=== PATIENT | male | born 1960 | race Caucasian/White ===

== ENCOUNTER 2021-09-10 17:14 | Emergency (ER) | payer BC ==
[~2021-09-10] VITALS: Ht 152.4 cm; Wt 127.0 kg
[2021-09-10] MEDS ORDERED: LIDOCAINE 2% Multi-Dose 20 ML VIAL. IJ ONE (18:00)
[2021-09-10] MEDS ORDERED: DIPH,PERTUSS(ACELL),TET VAC/PF 0.5 ML SYRINGE. VAX IM ONE (18:00)
--- NOTE | 2021-09-10 19:22 | PHYS DOC ---
Past Medical History Past Surgical History: Cholecystectomy (ROCKY LAKHANI APRN) Smoking Status: Never Smoker Alcohol Use: Occasionally (ROCKY LAKHANI APRN) General Adult EDM: Chief Complaint: LACERATION/AVULSION HPI: HPI: Patient is a 60-year-old male presents emergency department reporting just prior to arrival he was cutting some insulation to install in his camper when he accidentally sliced his left thumb. Patient reports his tetanus immunization was greater than 5 years ago, denies other physical complaints or physical concerns. (ROCKY LAKHANI APRN) Review of Systems: Review of Systems: 14 body systems of review of systems have been reviewed. See HPI for pertinent positives and negative responses, otherwise all other systems are negative, nonpertinent or noncontributory. Constitutional: Negative except as outlined in HPI above. Skin: Negative except as outlined in HPI above. Eyes: Negative except as outlined in HPI above. HENT: Negative except as outlined in HPI above. Respiratory: Negative except as outlined in HPI above. Cardiovascular: Negative except as outlined in HPI above. GI: Negative except as outlined in HPI above. : Negative except as outlined in HPI above. Musculoskeletal: Negative except as outlined in HPI above. Integument: Negative except as outlined in HPI above. Neurologic: Negative except as outlined in HPI above. Endocrine: Negative except as outlined in HPI above. Lymphatic: Negative except as outlined in HPI above. Psychiatric: Negative except as outlined in HPI above. (ROCKY LAKHANI APRN) Heart Score: C/O Chest Pain: No Risk Factors: Risk Factors: DM, Current or recent (<one month) smoker, HTN, HLP, family history of CAD, obesity. Risk Scores: Score 0 - 3: 2.5% MACE over next 6 weeks - Discharge Home Score 4 - 6: 20.3% MACE over next 6 weeks - Admit for Clinical Observation Score 7 - 10: 72.7% MACE over next 6 weeks - Early Invasive Strategies (ROCKY LAKHANI APRN) Current Medications: Current Medications Medications (Trade) Dose Ordered Sig/Joel Start Time Stop Time Status Last Admin Dose Admin Diphtheria/ Tetanus/Acell Pertussis (ADACEL TDap SYRINGE) 0.5 ml ONCE ONCE 09/10/21 18:00 09/10/21 18:01 DC 09/10/21 18:08 0.5 ML Lidocaine HCl (Lidocaine 2% 20ml Vial) 20 ml 1X ONCE 09/10/21 18:00 09/10/21 18:01 DC 09/10/21 18:06 20 ML (ROCKY LAKHANI APRN) Allergies: Allergies: Allergies Coded Allergies Type Severity Reaction Last Updated Verified No Known Drug Allergies 09/10/21 No (ROCKY LAKHANI APRN) Physical Exam: PE: Constitutional: Well developed, well nourished, no acute distress, non-toxic appearance. 60-year-old male in no apparent distress. HENT: Normocephalic, atraumatic. Eyes: Conjunctiva normal, no discharge. Neck: Normal range of motion, no stridor. Cardiovascular: No cyanosis appreciated, distal cap refill less than 2 seconds. Lungs & Thorax: Patient is in no respiratory distress, no audible adventitious lung sounds appreciated. Abdomen: Nontender, no abnormalities noted. Skin: Warm, dry, no erythema, no rash. See extremity note for focused skin assessment Back: No tenderness, no deformities. Extremities: No tenderness, no cyanosis, no clubbing, ROM intact, no edema. Except for left thumb palmar aspect has 3 cm laceration near the DIP joint. Full active and passive range of motion of thumb joints, full thickness laceration with adipose tissue exposed, no tendon involvement appreciated. Distal cap refill less than 2 seconds, no loss of sensation distally. Neurologic: Alert and oriented X 3, normal motor function, normal sensory function, no focal deficits noted. Psychologic: Affect normal, judgement normal, mood normal. (ROCKY LAKHANI APRN) Current Patient Data: Vital Signs: Vital Signs Date Time Temp Pulse Resp B/P (MAP) Pulse Ox O2 Delivery O2 Flow Rate FiO2 09/10/21 17:45 98.0 88 16 146/89 (108) 97 Room Air 98.0 (ROCKY LAKHANI APRN) EKG: EKG: [] (ROCKY LAKHANI APRN) Radiology/Procedures: Radiology/Procedures: [] (ROCKY LAKHANI APRN) Course & Med Decision Making: Course & Med Decision Making Pertinent Labs and Imaging studies reviewed. (See chart for details) 60-year-old male, vital signs reviewed, presents emergency department concerning laceration to left thumb. Physical examination concerning for laceration, consistent with patient's explanation of events, will bring patient's tetanus immunization up-to-date with Adacel/Tdap. Please see laceration repair note. Patient gave verbal understanding of discharge home instructions, laceration suture repair care at home, follow-up to have sutures removed in 7 to 10 days.. Discussed with the patient all findings and diagnostic testing as well as the need to follow-up with their primary care provider for further evaluation and treatment or return to the ED if any new or worsening symptoms. Strict return precautions were also discussed at length, the patient voiced understanding and agreement with the discharge planning. The patient was nontoxic in appearance, in no apparent distress, and hemodynamically stable at the time of disposition. (ROCKY LAKHANI APRN) Course & Med Decision Making I have participated in the care of this patient and I have reviewed and agree with all pertinent clinical information above including history, exam, and recommendations. Bryant Bond DO (BRYANT BOND DO) Moncho Disclaimer: Moncho Disclaimer: This electronic medical record was generated, in whole or in part, using a voice recognition dictation system. (ROCKY LAKHANI APRN) Laceration Repair Lac Repair Indication: Laceration right thumb Time: 1914 Confirmed: Patient, procedure, side, and site correct. Consent: Patient, has given verbal consent. Description/repair Procedure: The patient was placed in the appropriate position and anesthesia around the laceration was achieved with 8 cc 2% lidocaine without epinephrine, digital block . The area was then cleansed with Betadine solution, vigorously irrigated with 500 cc normal saline. The laceration was closed with 7 interrupted sutures using 4-0 nylon. The wound area was then dressed with bacitracin and gauze by ED nursing staff prior to discharge. Complexity: Single layer. Post procedure exam: Circulation, motor, sensory examination intact, bleeding controlled. Total repaired wound length: 3 cm. Other Items: Laceration explored for foreign bodies, there are no foreign bodies. Laceration extended into the adipose tissue, no tendon involvement appreciated The patient tolerated the procedure well. Complications: No complications. Performed by: Rocky Mckeon, [employer] ENGINEER[employer]C Supervision: Dr. Bond was present for consult regarding the critical aspects of the procedure including closure and post procedure exam. Total time: 30 minutes. (ROCKY LAKHANI APRN) Departure Departure Impression: Primary Impression: Laceration of left thumb Qualified Codes: S61.012A - Laceration without foreign body of left thumb without damage to nail, initial encounter Disposition: 01 HOME / SELF CARE / HOMELESS Condition: GOOD Referrals: NO PCP (PCP) Patient Instructions: Laceration Care, Adult Additional Instructions: You were seen today in the emergency department for laceration to your left thumb, this was repaired with 7 sutures that will require removal in 7 to 10 days. When you return home to your state residence, please follow-up with your primary care physician to have sutures removed. Cleanse daily with soap and water and apply antibiotic ointment with bandage until sutures are removed. As we discussed, do not soak your hands and water for long periods of time such as doing dishes or swimming or soaking in hot tubs. However please cleanse 2-3 times daily with mild soap and water pat dry and apply [id number] antibiotic ointment and a Band-Aid. Return to the emergency room immediately for reevaluation for increased pain noncontrolled with Tylenol or ibuprofen, purulent malodorous drainage. During the first few days of the healing process it is difficult to ooze bright red to dark red-colored blood with a yellow tinge. Thank you for visiting our Emergency Department. It was a pleasure taking care of you today in the emergency department and we appreciate you trusting us with your care. If any additional problems come up don't hesitate to return to visit us. Please follow up with your primary care provider so they can plan additional care if needed and know about the problem that you had. If symptoms worsen come back to the Emergency Department. Any concerning symptoms that start such as chest pain, shortness of air, weakness or numbness on one side of the body, running high fevers or any other concerning symptoms return to the ER. ROCKY LAKHANI APRN Sep 10, 2021 19:22 BRYANT BOND DO Sep 10, 2021 21:51
[2021-09-10 19:37] VITALS: BP 140/89
[2021-09-10] MEDS ORDERED: BACITRACIN TOPICAL OINT PACKET. TP ONE (20:15)
== END 2021-09-10 20:09 | disposition home or self-care (01) ==
LOC: ER 17:14
DX: S61.012A Laceration without foreign body of left thumb without damage to nail, initial encounter (principal); W27.4XXA Contact with kitchen utensil, initial encounter; Y93.89 Activity, other specified; Y92.89 Other specified places as the place of occurrence of the external cause; Y99.8 Other external cause status
CPT/HCPCS: 12002; 90471; 90715; 99283-25